=== PATIENT | male | born 1995 | race Caucasian/White ===

== ENCOUNTER 2021-07-11 11:33 | Emergency (ER) | payer OTHER ==
[~2021-07-11 11:33] MED LIST: CYCLOBENZAPRINE10 MG PO; HYDROCODON-ACE1 EAC2 PO; IBUPROFEN800 MG PO; PERCOCET 10-321 EACH PO
[2021-07-11 14:41] LABS: HEMOGLOBIN 14.5 gm/dl (14.0-17.5); RED BLOOD COUNT 4.9 M/UL (4.20-5.50)
[2021-07-11 14:55] LABS: BUN/CREATININE RATIO 17 (0-10)
== END 2021-07-11 15:30 | disposition left against medical advice (07) ==
LOC: ER1 11:33
PROVIDERS: Preventive Medicine Occupational Medicine
DX: R07.89 Other chest pain (principal); F17.210 Nicotine dependence, cigarettes, uncomplicated
CPT/HCPCS: 71045; 80053; 82550; 82553; 83690; 83880; 84484; 85025; 85652; 86140; 93005; 99283